=== PATIENT | female | born 1995 | race Caucasian/White ===

== ENCOUNTER 2018-02-05 11:21 | Emergency (ER) | payer SELFPAY ==
[2018-02-05 11:38] VITALS: BP 125/77
[2018-02-05] MEDS ORDERED: Metoclopramide IV* 5 MG/ML 2 ML VIAL IV SLOW PU ONE (12:10)
[2018-02-05] MEDS ORDERED: Ketorolac INJ* 30 MG/ML 1 ML VIAL IV PUSH ONE (12:10)
[2018-02-05] MEDS ORDERED: Dexamethasone IV* 4 MG/ML 1 ML (4 MG) IV SLOW PU ONE (12:10)
[2018-02-05] MEDS ORDERED: Dexamethasone TAB* 4 MG PO ONE (12:16)
[2018-02-05] MEDS ORDERED: Ketorolac TAB * 10 MG TAB PO ONE (12:16)
[2018-02-05] MEDS ORDERED: Metoclopramide TAB* 10 MG PO ONE (12:16)
--- NOTE | 2018-02-05 12:20 | ED ---
Throat Pain/Nasal Congestion - HPI Summary HPI Summary: The pt is a 22 y/o female with a Mhx of migraines complaining of whooshing noises in her ears since 12:30am yesterday night. The increasingly loud noise is described as pulses and is worsened by lying down and alleviated by presence of background noise and sitting up. 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 The pt notes photophobia, nasal discharge but denies FULLER, dizziness, lightheadedness and ear pain. She sees 2 neurologists at home but all the tests they have performed returned negative. The pt reports seasonal allergies for which she takes Clarithin. - History of Current Complaint Chief Complaint: EDGeneral Time Seen by Provider: 02/05/18 11:40 Hx Obtained From: Patient Onset/Duration: Lasting Hours, Still Present Related History: Seasonal Allergies, Other (Noted In Comments) - Pmhx of migraines and scotomas - Allergies/Home Medications Allergies/Adverse Reactions: Allergies Allergy/AdvReac Type Severity Reaction Status Date / Time No Known Allergies Allergy Verified 02/05/18 12:10 Home Medications: Home Medications NK [No Home Medications Reported] 02/05/18 [History Confirmed 02/05/18] PMH/Surg Hx/FS Hx/Imm Hx Previously Healthy: No Endocrine/Hematology History: Denies: Hx Diabetes Cardiovascular History: Denies: Hx Hypertension Respiratory History: Denies: Hx Asthma Sensory History: Reports: Hx Vision Problem - Scotomas since October 2017 Denies: Hx Deafness Neurological History: Reports: Hx Migraine - Cancer History Cancer Type, Location and Year: None reported - Surgical History Surgery Procedure, Year, and Place: None reported Infectious Disease History: No Infectious Disease History: Denies: Traveled Outside the [place] in Last 30 Days - Family History Known Family History: Positive: Diabetes - Social History Occupation: Student Lives: Dormitory/Roommates Alcohol Use: Occasionally Substance Use Type: Reports: None Smoking Status (MU): Never Smoked Tobacco Review of Systems Constitutional: Negative - Dizziness, lightheadedness Eyes: Other - Positive: scotomas since October 2017 Positive: Photophobia ENT: Other - Positive: whooshing noises in the ears Positive: Nasal Discharge. Negative: Ear Ache Negative: Headache All Other Systems Reviewed And Are Negative: Yes Physical Exam - Summary Physical Exam Summary: Constitutional: Well-developed, Well-nourished, Alert. (-) Distressed Skin: Warm, Dry HENT: Normocephalic; Atraumatic Eyes: Conjunctiva normal Neck: Musculoskeletal ROM normal neck. (-) JVD, (-) Stridor, (-) Tracheal deviation Cardio: Rhythm regular, rate normal, Heart sounds normal; Intact distal pulses; The pedal pulses are 2+ and symmetric. Radial pulses are 2+ and symmetric. (-) Murmur Pulmonary/Chest wall: Effort normal. (-) Respiratory distress, (-) Wheezes, (-) Rales Abd: Soft. (-) Tenderness, (-) Distension, (-) Guarding, (-) Rebound Musculoskeletal: (-) Edema Lymph: (-) Cervical adenopathy Neuro: Alert, Oriented x3, Strength normal, Cranial nerves II-XII are grossly intact. (-) Dysmetria, (-) Nystagmus, (-) Ataxia by finger to nose testing, (-) Sensory deficit. Psych: Mood and affect Normal Triage Information Reviewed: Yes Vital Signs On Initial Exam: Initial Vitals Temp Pulse Resp BP Pulse Ox 97.7 F 65 18 125/77 98 02/05/18 11:33 02/05/18 11:33 02/05/18 11:33 02/05/18 11:33 02/05/18 11:33 Vital Signs Reviewed: Yes Diagnostics - Vital Signs Vital Signs Temp Pulse Resp BP Pulse Ox 02/05/18 11:33 97.7 F 65 18 125/77 98 - Laboratory Result Diagrams: 02/05/18 12:24 02/05/18 12:24 Lab Statement: Any lab studies that have been ordered have been reviewed, and results considered in the medical decision making process. EENT Course/Dx - Course Course Of Treatment: A 22 year-old F with a PMhx of migraines and scotomas presents to the ED with a CC of whooshing noises in her ears since 12:30am yesterday night. The increasingly loud noise is described as pulses and is worsened by lying down and alleviated by presence of background noise and sitting up. The pt notes photophobia, nasal discharge but denies FULLER, dizziness, lightheadedness and ear pain. She sees 2 neurologists at home but all the tests including MRIs returned negative. A physical exam is unremarkable. The pt appears normal. Her sx could be related to inner ear pathology and her seasonal allergies. She reports increasing scotomas. I will treat her for atypical migraine. In the ED course, pt was given Demamethasone 12mg IV, Ketorolac 40 mg IV and Metoclopramide 5mg PO which improved the symptoms. The patient will be discharged with a final Dx of seasonal allergies. Pt is agreeable with this plan. Allergies noted. - Diagnoses Provider Diagnoses: Seasonal allergies Discharge - Sign-Out/Discharge Documenting (check all that apply): Patient Departure - DC - Discharge Plan Condition: Improved Disposition: HOME Patient Education Materials: Allergies (ED) Referrals: [facility] [Provider Group] - 2 Days Additional Instructions: RETURN TO THE EMERGENCY DEPARTMENT FOR CHANGING OR WORSENING SYMPTOMS Continue to take the Claritin medication. Also take 1 Benadryl pill and Pseudofed which can be obtained OTC - Attestation Statements Document Initiated by Scribe: Yes Documenting Scribe: Jennifer Pal Provider For Whom Scribe is Documenting (Include Credential): Dr. Todd Anderson MD Scribe Attestation: Jennifer Colindres , scribed for Dr. Todd Anderson MD on 02/05/18 at 1600.
[2018-02-05 12:48] LABS: Hematocrit 41 % (35-47); Hemoglobin 13.8 g/dl (12.0-16.0); Mean Corpuscular HGB Conc 34 g/dl (31-36); Mean Corpuscular Hemoglobin 31 pg (27-31); Mean Corpuscular Volume 90 fL (80-97); Mean Platelet Volume 7.8 um3 (7.4-10.4); Platelet Count 273 10^3/ul (150-450); Red Blood Count 4.51 10^6/ul (4.00-5.40); Red Cell Distribution Width 13 % (10.5-15); White Blood Count 6.2 10^3/ul (3.5-10.8)
[2018-02-05 13:02] LABS: EGFR Non-African American 97.5 (>60)
== END 2018-02-05 14:41 | disposition home or self-care (01) ==
LOC: ED 11:21
DX: J30.2 Other seasonal allergic rhinitis (principal); H53.149 Visual discomfort, unspecified
CPT/HCPCS: 36415; 80048; 85027; 96374; 99282; A9270-GY; J1100; J1885; J2765; J8540